=== PATIENT | male | born 1975 | race Caucasian/White ===

== ENCOUNTER 2023-04-18 15:59 | Emergency (ER) | payer OTHER, SELFPAY ==
[2023-04-18 16:08] VITALS: BP 187/141; PULSE 94; RESP 17; O2SAT 99; BMI 34.9
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
[2023-04-18 17:13] LABS: Basophils % 0.3 %; Eosinophils # 0.1 10^3/uL (0.0-0.8); Eosinophils % 0.6 %; Hematocrit 49.2 % (42.0-52.0); Hemoglobin 15.9 g/dL (11.7-16.6); Lymphocytes # 2.2 10^3/uL (0.8-4.8); Lymphocytes % 22.5 %; Mean Corpuscular HGB Conc 32.3 g/dL (30.0-36.0); Mean Corpuscular Hemoglobin 27.7 pg (28.0-34.0); Mean Corpuscular Volume 85.6 fl (80-94); Mean Platelet Volume 9.6 fL (7.4-10.4); Monocytes # 0.7 10^3/uL (0.2-0.9); Monocytes % 7.3 %; Neutrophils # 6.78 10^3/uL (1.8-7.7); Neutrophils % 68.8 %; Nucleated Red Blood Cells % 0 %; Platelet Count 259 10^3/cmm (130-400); Red Blood Count 5.75 10^6/uL (4.1-5.3); Red Cell Distribution Width 13.6 % (12.1-15.1); White Blood Count 9.9 10^3/uL (4.0-10.0)
[2023-04-18] MEDS: labetalol 5 mg/mL SDV 20mL 10 MG IVP (17:14)
[2023-04-18] MEDS: hyDRALAzine 20 mg/mL INJ 1 mL IVP (17:16)
[2023-04-18] MEDS: amlodipine 10 mg Tablet PO (17:18)
[2023-04-18] MEDS: HYDROcodone-acetaminophen 5-325 mg Tablet 1 TAB PO (17:18)
[2023-04-18] MEDS: ibuprofen 200 mg Tablet 400 MG PO (17:21)
[2023-04-18 17:41] LABS: Alanine Aminotransferase 24 U/L (0-41); Albumin Level 4.2 g/dL (3.5-5.2); Alkaline Phosphatase 112 U/L (40-130); Anion Gap 15.1 (5-19); Aspartate Amino Transferase 22 U/L (0-40); Blood Urea Nitrogen 14 mg/dL (6-20); Calcium 8.5 mg/dL (8.5-10.5); Carbon Dioxide 22 mmol/L (22-29); Chloride 104 mmol/L (98-107); Globulin 2.9 g/dL (1.3-4.6); Glomerular Filtration Rate 64.4 mL/min (90-130); Glucose 104 mg/dL (65-115); Osmolality Calculated 285 mOsm/kg (285-295); Potassium 4.1 mmol/L (3.5-5.1); Sodium 137 mmol/L (136-145); Total Bilirubin 0.3 mg/dL (0.15-1.2); Total Protein 7.1 g/dL (6.6-8.7)
[2023-04-18 17:53] VITALS: BP 112/60; PULSE 62; RESP 18; O2SAT 100
== END 2023-04-18 17:54 | disposition home or self-care (01) ==
PROVIDERS: Emergency Provider Family Medicine
DX: S16.1XXA Strain of muscle, fascia and tendon at neck level, initial encounter (principal); I10 Essential (primary) hypertension; V69.9XXA Occupant (driver) (passenger) of heavy transport vehicle injured in unspecified traffic accident, initial encounter; Y92.410 Unspecified street and highway as the place of occurrence of the external cause
CPT/HCPCS: 36415; 72125; 80053; 85025; 96374; 96375; 99284; J0360; J3490

== ENCOUNTER → 2023-05-09 15:10 | Outpatient (BNVA) | payer OTHER, SELFPAY | PROVIDERS: Referring Provider Family Medicine; Visit Provider Orthopaedic Surgery | DX: M54.2 Cervicalgia (principal); V49.9XXA Car occupant (driver) (passenger) injured in unspecified traffic accident, initial encounter | CPT/HCPCS: 72040 ==

== ENCOUNTER 2023-05-16 10:06 | Outpatient (CLI) | payer OTHER, SELFPAY ==
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
== END 2023-05-16 10:07 | disposition home or self-care (01) ==
PROVIDERS: PCP Family Medicine; Visit Provider Orthopaedic Surgery
DX: R51.9 Headache, unspecified (principal); M48.02 Spinal stenosis, cervical region; M50.322 Other cervical disc degeneration at C5-C6 level; M25.78 Osteophyte, vertebrae; M54.2 Cervicalgia; V89.2XXA Person injured in unspecified motor-vehicle accident, traffic, initial encounter
CPT/HCPCS: 72141

== ENCOUNTER → 2025-05-12 08:26 | Outpatient (BNVA) | payer OTHER, SELFPAY | PROVIDERS: PCP Family Medicine; Visit Provider Physician Assistant | DX: S61.411A Laceration without foreign body of right hand, initial encounter (principal); G56.01 Carpal tunnel syndrome, right upper limb; S69.91XA Unspecified injury of right wrist, hand and finger(s), initial encounter; X58.XXXA Exposure to other specified factors, initial encounter | CPT/HCPCS: 73130 ==